=== PATIENT | female | born 1975 | race Two or more races ===

== ENCOUNTER 2021-10-14 19:27 | Emergency (ER) | payer OTHER ==
[~2021-10-14] VITALS: Ht 157.5 cm; Wt 84.8 kg
[2021-10-14] MEDS ORDERED: LURA20TA PO (19:52)
[2021-10-14] MEDS ORDERED: CARB200T PO (19:52)
[2021-10-14] MEDS ORDERED: ALPR0.255 PO (19:52)
[2021-10-14] MEDS ORDERED: DULO20CA PO (19:52)
--- NOTE | 2021-10-14 20:12 | NUR ---
Dr. Belle at bedside for MSE. pt stacy early from [facility] for c/o seizure. pt has a hx of sz. pt with a soft helmet in place.
[2021-10-14 20:23] LABS: HEMATOCRIT 31.6 % (31.2-41.9); MEAN CORPUSCULAR HEMOGLOBIN 26.5 uug (24.7-32.8); MEAN CORPUSCULAR VOLUME 83.3 fL (75.5-95.3); PLATELET COUNT (AUTO) 263 K/uL (179-408)
[2021-10-14 20:32] LABS: ALANINE AMINOTRANSFERASE 28 U/L (14-59); ALKALINE PHOSPHATASE 79 U/L (50-136); ASPARTATE AMINOTRANSFERASE 9 U/L (15-37); BILIRUBIN,DIRECT < 0.1 mg/dL (0.0-0.2); BILIRUBIN,TOTAL 0.2 mg/dL (0.2-1.0); CARBON DIOXIDE 29 mmol/L (21-32); CHLORIDE 105 mmol/L (98-107); CREATININE 0.5 mg/dL (0.6-1.3); GLUCOSE 109 mg/dL (74-106); POTASSIUM 3.6 mmol/L (3.5-5.1); TOTAL PROTEIN, SERUM 6.9 g/dL (6.4-8.2); UREA NITROGEN, BLOOD 16 mg/dL (7-18)
--- NOTE | 2021-10-14 20:51 | NUR ---
dr. Belle says we can wait on iv insertion at this time.
[2021-10-14 20:56] LABS: ETHANOL < 3 MG/DL (0-0)
--- NOTE | 2021-10-14 22:06 | NUR ---
Patient discharged to home in stable condition. Written and verbal after care instructions given. Patient verbalizes understanding of instructions. Stressed follow up or return to ER for worsening s/s. pt is released to custody of [facility]. cleared for booking by Dr. Belle.
[2021-10-14 22:29] VITALS: BP 130/70
== END 2021-10-14 22:30 | disposition home or self-care (01) ==
LOC: ER 19:27
DX: G40.909 Epilepsy, unspecified, not intractable, without status epilepticus (principal); Z79.899 Other long term (current) drug therapy; F31.9 Bipolar disorder, unspecified; F41.9 Anxiety disorder, unspecified
CPT/HCPCS: 36415; 85025; 93005; A4663; G0480